=== PATIENT | male | born 1955 | race Caucasian/White ===

== ENCOUNTER 2021-10-01 06:20 | Inpatient (IN) ==
[2021-10-01] MEDS ORDERED: CeFAZolin Syr 2,000MG/20 ML 2,000 MG/20 ML SYRINGE IVPB ONE (06:39)
[2021-10-01] MEDS ORDERED: Ringers Solution, Lactated 1,000 ML IVC SCH (06:45)
[2021-10-01] MEDS ORDERED: Heparin 1,000 UNITS/500 mL 3,000 ML ONE (06:49)
[2021-10-01] MEDS ORDERED: *HR* HYDROmorphone PF 0.5 MG/0.5 ML SYRINGE IVP PRN (07:00)
[2021-10-01] MEDS ORDERED: *HR* FentaNYL (PF) 100 MCG/2 ML VIAL ONE ×2 (07:17→08:47)
[2021-10-01] MEDS ORDERED: Ondansetron 4 MG/2 ML VIAL ONE (07:18)
[2021-10-01] MEDS ORDERED: *HR* Succinylcholine 200 MG/10 ML VIAL IVP ONE (07:19)
[2021-10-01] MEDS ORDERED: *HR* Phenylephrine 10 MG/ML VIAL ONE (07:19)
[2021-10-01] MEDS ORDERED: *HR* Rocuronium Bromide 50 MG/5 ML VIAL ONE ×3 (07:19→10:00)
[2021-10-01] MEDS ORDERED: *HR* Propofol 200 MG/20 ML VIAL IVP ONE ×2 (07:19→11:08)
[2021-10-01] MEDS ORDERED: Lidocaine HCL 4 ML Topical Solution (Laryng-O-Jet Kit Sterile Pak) TP ONE (07:26)
[2021-10-01] MEDS ORDERED: Heparin 1,000 UNITS/500 mL 0 ML ONE (07:30)
[2021-10-01] MEDS ORDERED: ceFAZolin 1,000 MG, Sodium Chloride IRRigation 1,000 ML IR ONE (07:45)
[2021-10-01] MEDS ORDERED: NiCARdipine 2.5 MG/10 ML Syringe IVPB ONE (07:52)
[2021-10-01] MEDS ORDERED: Acetaminophen IV 1,000 MG/100 ML BAG IVPB ONE (08:18)
[2021-10-01] MEDS ORDERED: *HR* Heparin 5,000 UNIT/ML VIAL ONE (08:32)
[2021-10-01] MEDS ORDERED: *HR* OxyCODONE/APAP 10/325 TABLET PO PRN (12:22)
[2021-10-01] MEDS ORDERED: *HR* OxyCODONE Immed Rel 5 MG TABLET PO PRN (12:22)
[2021-10-01] MEDS ORDERED: *HR* HYDROcodone/Acet 5/325 mg TABLET PO PRN (12:22)
[2021-10-01] MEDS ORDERED: Naloxone 0.4 MG/ML INJ IVP PRN (12:22)
[2021-10-01] MEDS ORDERED: *HR* Labetalol 20 MG/4 ML SYRINGE IVP PRN (12:22)
[2021-10-01] MEDS: Gabapentin 400 MG CAPSULE PO SCH ×2 (15:09→20:39)
[2021-10-01] MEDS: ceFAZolin 2,000 MG in 0.9 % Sodium Chloride 100 ML IVPB SCH ×2 (15:09→23:54)
[2021-10-01] MEDS: Acetaminophen 325 MG TABLET PO PRN (20:39)
[2021-10-02 04:16] LABS: Basophils % 0.1 %; Eosinophils % 0.1 %; Hematocrit 42.6 % (37.5-50.1); Hemoglobin 14.1 g/dL (12.9-16.9); Immature Granulocytes % 0.4 % (0-4); Lymphocytes # 1.1 K/mcL (0.6-4.6); Lymphocytes % 8.1 %; Mean Corpuscular HGB Conc 33.1 g/dL (31.6-35.5); Mean Corpuscular Hemoglobin 31.2 pg (28.0-33.3); Mean Corpuscular Volume 94.2 fL (83.0-100.0); Mean Platelet Volume 9.8 fL (9.4-12.4); Monocytes # 1.4 K/mcL (0.0-1.3); Monocytes % 9.8 %; Neutrophils # 11.2 K/mcL (1.6-8.9); Platelet Count 207 K/mcL (140-400); Red Blood Count 4.52 M/mcL (4.19-5.50); Red Cell Distribution Width 13.4 % (11.5-14.5); Segmented Neutrophils % 81.5 %; White Blood Count 13.8 K/mcL (4.3-11.1)
[2021-10-02 04:57] LABS: BUN/Creatinine Ratio 23 (6-26); Blood Urea Nitrogen 19 mg/dL (8-23); Calcium 8.8 mg/dL (8.6-10.3); Carbon Dioxide 23 mEq/L (23-29); Chloride 109 mEq/L (98-107); Glucose 117 mg/dL (70-105); Osmolality,Calculated 293 (280-300); Sodium 140 mEq/L (136-145); eGFR For African Americans > 60 (> 60); eGFR For Non-African Americans > 60 (> 60)
[2021-10-02] MEDS: Gabapentin 400 MG CAPSULE PO SCH (08:37)
[2021-10-02] MEDS: Acetaminophen 325 MG TABLET PO PRN (08:55)
[2021-10-02] MEDS: ceFAZolin 2,000 MG in 0.9 % Sodium Chloride 100 ML IVPB SCH (08:56)
[2021-10-02] MEDS ORDERED: Cholecalciferol (D-3) 1,000 UNIT (25MCG) TABLET PO SCH (09:00)
[2021-10-02 17:20] VITALS: BP 139/86; PULSE 75; TEMP 98.3; O2SAT 97
== END 2021-10-02 19:05 | disposition home or self-care (01) | DRG 269 ==
LOC: SAMDAY 06:20 → 2NNU 12:47
PROVIDERS: ADMIT Surgery Vascular Surgery; ATTEND Surgery Vascular Surgery